=== PATIENT | female | born 2000 | race Caucasian/White ===

== ENCOUNTER 2020-06-07 10:19 | Outpatient (REF) | payer OTHER, SELFPAY ==
[2020-06-07 16:19] LABS: CT PCR NOT DETECTED (Not Detect.); NG PCR NOT DETECTED (Not Detect.)
== END 2020-06-07 10:20 | disposition home or self-care (01) ==
LOC: HO.LAB 10:19
PROVIDERS: PCP Internal Medicine; Referring Provider Internal Medicine; Visit Provider Advanced Practice Midwife
DX: Z01.419 Encounter for gynecological examination (general) (routine) without abnormal findings (principal); F12.10 Cannabis abuse, uncomplicated; Z11.8 Encounter for screening for other infectious and parasitic diseases; Z11.3 Encounter for screening for infections with a predominantly sexual mode of transmission; Z20.2 Contact with and (suspected) exposure to infections with a predominantly sexual mode of transmission
CPT/HCPCS: 87491; 87591

== ENCOUNTER 2020-06-22 15:08 | Outpatient (REF) | payer OTHER, SELFPAY ==
[2020-06-22 15:37] LABS: MANUAL DIFF FLAG NO
[2020-06-22 16:18] LABS: Alanine Aminotransferase 23 U/L (0-31); Albumin Level 4.4 g/dL (3.5-5.0); Alkaline Phosphatase 46 U/L (39-117); Anion Gap 13 (12-20); Aspartate Amino Transferase 16 U/L (5-31); Bilirubin Total 0.5 mg/dL (0.0-1.0); Blood Urea Nitrogen 11 mg/dL (9-16); Calcium 8.5 mg/dL (8.4-10.2); Carbon Dioxide 24 mmol/L (22-29); Chloride 106 mmol/L (96-108); Cholesterol 173 mg/dL; Estimated Glomerular Filt Rate > 60; Glucose Fasting 72 mg/dL (60-99); HDL Cholesterol 51 mg/dL; LDL Cholesterol Calculated 103 mg/dl; Potassium 4.1 mmol/l (3.3-5.1); Sodium 139 mmol/L (135-145); Total Protein 7.2 g/dL (6.5-8.0); Triglycerides 97 mg/dL
[2020-06-22 16:38] LABS: TSH reflex Free T4 1.13 mIU/mL (0.32-4.0); Vitamin D 25-OH Total 21.4 ng/mL (>30)
[2020-06-22 18:18] LABS: Basophils Percent Auto 0.4 % (0-2); Eosinophils Absolute Auto 0.1 X10*3/uL (0.0-0.4); Eosinophils Percent Auto 1.2 % (0-4); Hematocrit 39.1 % (37-47); Hemoglobin 12.4 g/dl (12.0-16.0); Imm Gran Abs Auto 0.04 X10*3/uL (0.00-0.03); Imm Gran Pct Auto 0.4 % (0.0-0.4); Lymphocytes Absolute Auto 3.4 X10*3/uL (1.2-4.9); Lymphocytes Percent Auto 37.3 % (20-40); Mean Corpuscular HGB Conc 31.7 g/dl (31.0-35.0); Mean Corpuscular Hemoglobin 28.6 pg (27.0-33.0); Mean Corpuscular Volume 90.3 fL (80-98); Mean Platelet Volume 11.5 fL (9.4-12.3); Monocytes Absolute Auto 0.6 X10*3/uL (0.1-1.2); Monocytes Percent Auto 6.4 % (2-11); Neutrophils Percent Auto 54.3 % (45-73); Platelet Count 272 X10*3/uL (160-400); Red Blood Count 4.33 X10*6/uL (4.20-5.50); Red Cell Distribution Width 12.7 % (11.0-16.0); White Blood Count 9.2 X10*3/uL (4.8-10.8)
[2020-06-23 04:00] LABS: Syphilis Screen Nonreactive (Nonreactive)
[2020-06-23 04:32] LABS: HBc Num1 0.03 S/CO (0.00-0.79); Hepatitis B Core Antibody Nonreactive (Nonreactive); ~HepC Num1 0.08 S/CO (0.00-0.79); ~Hepatitis C Antibody Nonreactive (Nonreactive)
[2020-06-23 04:36] LABS: HIV AB/AG Nonreactive (Nonreactive); HIV Num 1 0.25 S/CO (0.00-0.99)
== END 2020-06-22 15:09 | disposition home or self-care (01) ==
LOC: HO.LAB 15:08
PROVIDERS: Absent Provider Advanced Practice Midwife; PCP Internal Medicine; Visit Provider Internal Medicine
DX: E55.9 Vitamin D deficiency, unspecified (principal); N92.6 Irregular menstruation, unspecified; F41.8 Other specified anxiety disorders; Z82.49 Family history of ischemic heart disease and other diseases of the circulatory system
CPT/HCPCS: 36415; 80053; 80061; 82306; 84443; 85025; 86704; 86780; 86803; 87389

== ENCOUNTER → 2020-07-04 14:56 | Outpatient (BNVA) | payer OTHER, SELFPAY | PROVIDERS: PCP Internal Medicine; Visit Provider Advanced Practice Midwife | DX: Z76.89 Persons encountering health services in other specified circumstances (principal) ==

== ENCOUNTER 2020-07-25 08:39 | Outpatient (REF) | payer OTHER, SELFPAY ==
[2020-07-26 14:16] LABS: BV Int Neg Control Negative (Negative)
[2020-07-26 14:17] LABS: BV Int Pos Control Positive (Positive)
[2020-07-29 04:57] LABS: CT PCR NOT DETECTED (Not Detect.); NG PCR NOT DETECTED (Not Detect.)
== END 2020-07-25 08:40 | disposition home or self-care (01) ==
LOC: HO.LAB 08:39
PROVIDERS: PCP Internal Medicine; Visit Provider Advanced Practice Midwife
DX: N89.8 Other specified noninflammatory disorders of vagina (principal); N92.1 Excessive and frequent menstruation with irregular cycle; Z20.2 Contact with and (suspected) exposure to infections with a predominantly sexual mode of transmission; Z30.09 Encounter for other general counseling and advice on contraception
CPT/HCPCS: 87480; 87491; 87510; 87591; 87660; 99212

== ENCOUNTER 2020-11-16 10:20 | Outpatient (REF) | payer OTHER, MEDICAID, SELFPAY ==
[2020-11-16 12:56] LABS: Thyroid Stimulating Hormone 0.67 uIU/mL (0.32-4.0)
[2020-11-17 07:02] LABS: DHEA Sulfate 411 mcg/dL (51-321)
[2020-11-17 08:16] LABS: Prolactin 6.8 ng/mL
[2020-11-20 18:02] LABS: Testosterone, Free 8.3 pg/mL (0.1-6.4); Testosterone, Total 52 ng/dL (2-45)
== END 2020-11-16 10:21 | disposition home or self-care (01) ==
LOC: HO.LAB 10:20
PROVIDERS: PCP Internal Medicine; Visit Provider Advanced Practice Midwife
DX: Z30.41 Encounter for surveillance of contraceptive pills (principal); L70.9 Acne, unspecified; N92.6 Irregular menstruation, unspecified; R45.86 Emotional lability
CPT/HCPCS: 36415; 82627; 83498; 84146; 84402; 84403; 84443; 99212

== ENCOUNTER → 2020-11-27 13:17 | Outpatient (BNVA) | payer OTHER, SELFPAY | PROVIDERS: Visit Provider Advanced Practice Midwife ==

== ENCOUNTER → 2021-01-22 14:45 | Outpatient (BNVA) | payer OTHER, MEDICAID, SELFPAY | PROVIDERS: PCP Internal Medicine; Visit Provider Internal Medicine | DX: N92.6 Irregular menstruation, unspecified (principal); R79.89 Other specified abnormal findings of blood chemistry | CPT/HCPCS: 99202 ==

== ENCOUNTER 2021-02-01 13:08 | Outpatient (REF) | payer OTHER, SELFPAY ==
--- NOTE | ~2021-02-01 | US_ITS ---
EXAMINATION: US pelvic and transvaginal CLINICAL INFORMATION: Irregular menstruation. COMPARISON: None. TECHNIQUE: Transabdominal and transvaginal imaging was performed. FINDINGS: UTERUS: The uterus is anteverted and normal in size and appearance measuring 8.1 x 3.2 x 4.9 cm. Endometrial thickness measures 0.5 cm. RIGHT OVARY: Normal size and appearance with normal follicles. No dominant cyst or mass. The right ovary measures 4.0 x 2.3 x 2.4 cm with a volume of 12 mL. LEFT OVARY: Normal size and appearance measuring 3.3 x 2.0 x 3.4 cm with a volume of 12 mL. There is no free fluid. US/US pelvic and transvaginal IMPRESSION: Unremarkable examination.
== END 2021-02-01 13:09 | disposition home or self-care (01) ==
LOC: HO.US 13:08
PROVIDERS: Visit Provider Advanced Practice Midwife
DX: N92.6 Irregular menstruation, unspecified (principal)
CPT/HCPCS: 76830; 76856

== ENCOUNTER 2021-02-06 09:08 | Outpatient (REF) | payer OTHER, SELFPAY ==
--- NOTE | ~2021-02-06 | CT_ITS ---
EXAMINATION: CT ABDOMEN WITHOUT AND WITH CONTRAST CLINICAL INFORMATION: Irregular menstruation COMPARISON: None TECHNIQUE: Contiguous axial thin section helical images of the abdomen were performed before and after the administration of oral contrast and 85 mL of Omnipaque 350 intravenous contrast. The data set was reformatted in the coronal and sagittal planes and reviewed on an independent workstation. This CT examination was performed using dose optimization techniques as appropriate, variously including the following: *Automated exposure control *Adjustment of mA and/or kV according to patient size (this includes techniques or standardized protocols for targeted exams where dose is matched to indication/reason for exam; i.e. extremities or head) *Use of iterative reconstruction technique DLP: 265 mGy-cm FINDINGS: LUNG BASES: Normal LIVER, GALLBLADDER, AND BILIARY TREE: Normal PANCREAS: Normal SPLEEN: Normal ADRENAL GLANDS AND KIDNEYS: The adrenal glands are normal. There is a small 4 mm low-attenuation lesion in the lower pole of the right kidney for example axial image 57 series 6 probably representing a small cyst. The kidneys are otherwise unremarkable. BOWEL LOOPS: Normal LYMPH NODES: Normal. VASCULAR: Unremarkable. BONES: Normal CT/CT abdomen wo/w con IMPRESSION: Normal-appearing adrenal glands. Probable small right renal cyst.
[2021-02-06] MEDS: iohexoL 350 MG/ML 100 ML INFUS..BTL IV (10:09)
== END 2021-02-06 09:09 | disposition home or self-care (01) ==
LOC: HO.CT 09:08
PROVIDERS: Visit Provider Internal Medicine
DX: N92.6 Irregular menstruation, unspecified (principal)
CPT/HCPCS: 74170; Q9967

== ENCOUNTER 2021-03-21 14:13 | Outpatient (REF) | payer OTHER, SELFPAY ==
[2021-03-21 15:45] LABS: Glucose Fasting 62 mg/dL (60-99)
[2021-03-21 15:46] LABS: Alanine Aminotransferase 14 U/L (0-31); Albumin Level 4.3 g/dL (3.5-5.0); Alkaline Phosphatase 78 U/L (39-117); Anion Gap 13 (12-20); Aspartate Amino Transferase 17 U/L (5-31); Bilirubin Total 0.5 mg/dL (0.0-1.0); Blood Urea Nitrogen 14 mg/dL (9-16); Carbon Dioxide 27 mmol/L (22-29); Chloride 104 mmol/L (96-108); Cholesterol 196 mg/dL; Estimated Average Glucose 91 mg/dL; Estimated Glomerular Filt Rate > 60; Glucose Random 60 mg/dL (60-115); HDL Cholesterol 57 mg/dL; Hemoglobin A1c % 4.8 %; LDL Cholesterol Calculated 98 mg/dl; Potassium 4.3 mmol/L (3.3-5.1); Sodium 140 mmol/L (135-145); Total Protein 7.3 g/dL (6.5-8.0); Triglycerides 209 mg/dL
[2021-03-21 16:10] LABS: Free T4 (Free Thyroxine) 0.97 ng/dL (0.71-1.85); HCG Quantitative < 2 mIU/mL; Thyroid Stimulating Hormone 0.88 uIU/mL (0.32-4.0); Vitamin D 25-OH Total 23.2 ng/mL (>30)
[2021-03-21 16:42] LABS: Glucose 1 Hour 77 mg/dL
[2021-03-21 17:50] LABS: Glucose 2 Hour 63 mg/dL
[2021-03-22 13:27] LABS: LDL Cholesterol Direct 118 mg/dL (<100)
[2021-03-22 14:20] LABS: Follicle Stimulating Hormone 5.2 mIU/mL; Lutenizing Hormone 7.3 mIU/mL; Prolactin 7.2 ng/mL
[2021-03-22 17:20] LABS: DHEA Sulfate 356 mcg/dL (51-321); Sex Hormone Binding Globulin 18 nmol/L (17-124)
[2021-03-27 17:27] LABS: Testosterone, Free 5.5 pg/mL (0.1-6.4); Testosterone, Total 34 ng/dL (2-45)
[2021-03-29 00:50] LABS: Estradiol Free 0.69 pg/mL; Estradiol, Ultrasensitive 27 pg/mL
[2021-03-29 19:01] LABS: Estradiol Ultra Sensitive 29 pg/mL
[2021-03-29 22:41] LABS: Androstenedione 187 ng/dL
== END 2021-03-21 14:14 | disposition home or self-care (01) ==
LOC: HO.LAB 14:13
PROVIDERS: PCP Internal Medicine; Visit Provider Internal Medicine
DX: N92.6 Irregular menstruation, unspecified (principal); E55.9 Vitamin D deficiency, unspecified
CPT/HCPCS: 36415; 80053; 80061; 82157; 82306; 82533; 82627; 82670; 82681; 83001; 83002; 83036; 83498; 83721; 84146; 84270; 84402; 84403; 84439; 84443; 84702

== ENCOUNTER → 2021-04-03 15:17 | Outpatient (BNVA) | payer OTHER, SELFPAY | PROVIDERS: PCP Internal Medicine; Visit Provider Urology | DX: N28.1 Cyst of kidney, acquired (principal) | CPT/HCPCS: 99202 ==

== ENCOUNTER 2021-04-17 14:04 | Outpatient (REF) | payer OTHER, SELFPAY ==
[2021-04-20 15:56] LABS: TS Negative Control Passed; TS Panel A 1; TS Panel B 4; TS Positive Control Passed; TSpotTB Negative (SeeBelow)
== END 2021-04-17 14:05 | disposition home or self-care (01) ==
LOC: HO.LAB 14:04
PROVIDERS: PCP Internal Medicine; Visit Provider Internal Medicine
DX: Z11.1 Encounter for screening for respiratory tuberculosis (principal)
CPT/HCPCS: 36415; 86481

== ENCOUNTER → 2021-04-30 08:14 | Outpatient (BNVA) | payer OTHER, SELFPAY | PROVIDERS: PCP Internal Medicine; Visit Provider Internal Medicine ==

== ENCOUNTER 2021-05-17 08:12 | Outpatient (REF) | payer OTHER, SELFPAY ==
--- NOTE | ~2021-05-17 | MR_ITS ---
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 COMPARISON: None TECHNIQUE: Multiplanar, multisequence MRI of the brain/sella was obtained before and after the intravenous administration of 4 mL Gadavist. FINDINGS: The pituitary gland demonstrates normal morphology with homogenous enhancement and is normal in size measuring 7 mm maximum craniocaudal dimension in the sagittal plane. No definite focal lesion is seen within the gland, and there is a normal posterior pituitary bright spot. No suprasellar or juxtasellar masses are identified. The infundibulum is normal in thickness and enhances normally in the midline. Cavernous sinuses enhance normally. No focal reduced diffusion is seen to suggest acute or subacute cerebral ischemia. The brain is normal in morphology and signal intensity. No intracranial mass lesion, abnormal enhancement, space-occupying process, or mass effect is identified. The ventricular system and subarachnoid spaces are within normal limits without hydrocephalus. Normal signal voids are seen in the visualized major intracranial vessels. There is nasal septal deviation to the left, and there is mild mucosal thickening in the ethmoid complex and maxillary sinuses with small retention cysts along the floors of the maxillary sinuses. Bony structures appear unremarkable. MR/MR head/brain wo/w con IMPRESSION: 1. Normal appearance to the pituitary gland. No pituitary gland lesion is identified. 2. Normal MRI of the brain without and with contrast. 3. Paranasal sinus inflammatory changes and nasal septal deviation to the left.
[2021-05-17 10:58] LABS: Cortisol Random 6.6 ug/dL
[2021-05-18 22:47] LABS: Adrenocorticotropic Hormone <5 pg/mL (6-50)
[2021-05-19 05:21] LABS: Sex Hormone Binding Globulin 16 nmol/L (17-124)
[2021-05-21 13:27] LABS: Follicle Stimulating Hormone 5.8 mIU/mL; Lutenizing Hormone 18.9 mIU/mL
[2021-05-23 14:01] LABS: Testosterone, Free 11.4 pg/mL (0.1-6.4); Testosterone, Total 55 ng/dL (2-45)
[2021-05-27 02:07] LABS: Estradiol Free 1.09 pg/mL; Estradiol, Ultrasensitive 41 pg/mL
== END 2021-05-17 08:13 | disposition home or self-care (01) ==
LOC: HO.MRI 08:12
PROVIDERS: PCP Internal Medicine; Visit Provider Internal Medicine
DX: E28.39 Other primary ovarian failure (principal)
CPT/HCPCS: 36415; 70553; 82024; 82533; 82670; 82681; 83001; 83002; 84270; 84402; 84403; A9585

== ENCOUNTER → 2021-06-06 12:53 | Outpatient (BNVA) | payer OTHER, SELFPAY | PROVIDERS: PCP Internal Medicine; Visit Provider Internal Medicine ==

== ENCOUNTER 2021-07-04 07:42 | Outpatient (REF) | payer OTHER, MEDICAID, SELFPAY ==
[2021-07-04 09:31] LABS: Cortisol Random 13.7 ug/dL
[2021-07-05 20:47] LABS: Adrenocorticotropic Hormone 14 pg/mL (6-50)
[2021-07-06 21:27] LABS: DHEA Sulfate 242 mcg/dL (51-321); Sex Hormone Binding Globulin 21 nmol/L (17-124)
[2021-07-09 15:20] LABS: Testosterone, Free 7.6 pg/mL (0.1-6.4); Testosterone, Total 45 ng/dL (2-45)
[2021-07-10 21:56] LABS: Androstenedione 313 ng/dL
== END 2021-07-04 07:43 | disposition home or self-care (01) ==
LOC: HO.LAB 07:42
PROVIDERS: PCP Internal Medicine; Visit Provider Internal Medicine
DX: R79.89 Other specified abnormal findings of blood chemistry (principal)
CPT/HCPCS: 36415; 82024; 82157; 82533; 82627; 84270; 84402; 84403

== ENCOUNTER 2021-08-31 13:48 | Outpatient (REF) | payer OTHER, MEDICAID, SELFPAY ==
[2021-09-02 15:16] LABS: TS Negative Control Passed; TS Panel A 0; TS Panel B 1; TS Positive Control Passed; TSpotTB Negative (Negative)
== END 2021-08-31 13:49 | disposition home or self-care (01) ==
LOC: HO.LAB 13:48
PROVIDERS: PCP Internal Medicine; Visit Provider Internal Medicine
DX: Z11.1 Encounter for screening for respiratory tuberculosis (principal)
CPT/HCPCS: 36415; 86481

== ENCOUNTER → 2021-09-24 13:01 | Outpatient (BNVA) | payer OTHER, MEDICAID, SELFPAY | PROVIDERS: PCP Internal Medicine; Visit Provider Internal Medicine ==